=== PATIENT | male | born 1995 | race Caucasian/White ===

== ENCOUNTER 2017-11-29 18:00 | Emergency (ER) | payer MEDICAID, OTHER ==
[2017-11-29 18:12] VITALS: BP 130/87
--- NOTE | 2017-11-29 18:39 | UC ---
Back Pain HPI - HPI Summary HPI Summary: 22 y/o male presents to the urgent care c/o acute mid back pain for the past week. Pt reports he had similar symptoms a month ago and he got a massage and symptoms resolved. This time he did the massage, but back pain still present. Pt also states his left lower leg was amputated on 04/10/2017 s/p injury at work. Pt now w/ BKA prosthesis. 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 Pain today is 9/10 sharp w/ movement on both side of mid back and radiating to his Rt lower leg. [facility] [place] Pt denies trauma to his back, saddle anesthesia, fecal or urinary incontinence, numbness or tingling over his lower extremities, urinary symptoms, fever, flank pain, abdominal pain, SOB, chest pain, N/V/D. - History of Current Complaint Chief Complaint: UCBackPain Stated Complaint: BACK PAIN Time Seen by Provider: 11/29/17 18:31 Hx Obtained From: Patient Onset/Duration: Gradual Onset, Lasting Weeks - 1 week Timing: Constant Severity Initially: Moderate Severity Currently: Severe Pain Intensity: 9 Pain Scale Used: 0-10 Numeric Back Pain: Is Discrete @ - B/L mid back pain, Radiates To - RT lower leg Character: Sharp, Spasmodic Aggravating Factor(s): Movement, Lifting, Bending Alleviating Factor(s): Rest, OTC Meds Associated Signs And Symptoms: Positive: Negative. Negative: Swelling, Redness , Bruising, Fever, Weakness, Numbness, Tingling, Abdominal Pain, Flank Pain, Bladder Incontinence, Bowel Incontinence, Weight Loss, Pain with Weight Bearing - Risk Factors AAA Risk Factors: Negative TAD Risk Factors: Negative Cauda Equina Risk Factors: Negative Epidural Abscess Risk Factors: Negative - Allergies/Home Medications Allergies/Adverse Reactions: Allergies Allergy/AdvReac Type Severity Reaction Status Date / Time No Known Allergies Allergy Verified 11/29/17 18:12 Home Medications: Home Medications Gabapentin CAP(*) [Neurontin 300 CAP(*)] 600 mg PO DAILY 11/29/17 [History Confirmed 11/29/17] PMH/Surg Hx/FS Hx/Imm Hx Previously Healthy: Yes - Pt denies PMHX Other History Of: Negative For: HIV, Hepatitis B, Hepatitis C, Anticoagulant Therapy - Surgical History Surgical History: Yes Surgery Procedure, Year, and Place: jaw "wired shut" 8th grade, tendon repair in hand.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 - Family History Known Family History: Positive: None - Pt denies FMHX Negative: Cardiac Disease, Hypertension, Diabetes, Renal Disease - Social History Occupation: Disabled Lives: With Family Alcohol Use: Weekly Alcohol Amount: 6 PACK DAILY Substance Use Type: None Substance Use Comment - Amount & Last Used: cocaine 01/28/16 Smoking Status (MU): Former Smoker Review of Systems Constitutional: Negative Skin: Negative Eyes: Negative ENT: Negative Respiratory: Negative Cardiovascular: Negative Gastrointestinal: Negative Genitourinary: Negative Motor: Negative Neurovascular: Negative Musculoskeletal: Decreased ROM - mid back, Other: - B/L mid back pain Neurological: Negative Psychological: Negative Is Patient Immunocompromised?: No All Other Systems Reviewed And Are Negative: Yes Physical Exam - Summary Physical Exam Summary: Vital Signs Reviewed: Yes Appearance: Well-Appearing, Well-Nourished, malew/ BKA sitting in a wheelchair w/ mild pain distress distress. Eyes: Positive: Conjunctiva Clear - PERRLA, EOMI. ENT: Positive: Normal ENT inspection, Hearing grossly normal, Pharynx normal, TMs normal, Uvula midline Neck: Positive: Supple, Nontender, No Lymphadenopathy Respiratory: Positive: Chest non-tender, Lungs clear, Normal breath sounds, No respiratory distress Cardiovascular: Positive: RRR, No Murmur, Pulses Normal, Brisk Capillary Refill Abdomen Description: Positive: Nontender, No Organomegaly, Soft. Negative: CVA Tenderness (R), CVA Tenderness (L) Bowel Sounds: Positive: Present Musculoskeletal: Positive: Strength Intact, BACK: Patient walks w/ BKA prosthesis with symmetric ambulation, No signs of limping, antalgic, able to bear weight. No signs of trauma, No masses palpated. Point tenderness at the level of T-11-12, B/Lparaspinal muscle tenderness at the same level. No B/L CVAT, no flank ecchymosis . No sacroiliac notch tenderness, No saddle anesthesia.ROM: limited due to pain, Straight Leg Raise: negative. Patellar reflexes: brisk, symmetric Muscle strength lower extremities. Dorsiflexion/ plantar flexion of ankles. Heel/ toe walk. Lower extremities: Femoral, popliteal , posterior tibial, and dorsalis pedis pulses WNL. Pt refuse rectal exam Neurological: Positive: Alert, Muscle Tone Normal Psychological Exam: Normal Skin Exam: Normal Triage Information Reviewed: Yes Vital Signs: Initial Vital Signs Temp 97.3 F 11/29/17 18:06 Pulse 85 11/29/17 18:06 Resp 22 11/29/17 18:06 BP 130/87 11/29/17 18:06 Pulse Ox 100 11/29/17 18:06 Back Pain Course/Dx - Course Course Of Treatment: 22 y/o male presents to the urgent care c/o acute mid back pain for the past week. Pt reports he had similar symptoms a month ago and he got a massage and symptoms resolved. This time he did the massage, but back pain still present. Pt also states his left lower leg was amputated on 2016 s/p injury at work. Pt now w/ BKA prosthesis. 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 Pain today is 9/10 sharp w/ movement on both side of mid back and radiating to his Rt lower leg. Pt has been taking Gabapentin PO Rx by his [facility] at [place]. Pt denies trauma to his back, saddle anesthesia, fecal or urinary incontinence, numbness or tingling over his lower extremities, urinary symptoms, fever, flank pain, abdominal pain, SOB, chest pain, N/V/D.Hx obtained. UA ordered: negative.At this point I have no suspicion for Kidney stones since patient has no hematuria and no flank tenderness. Thoracolumbar Spine X-ray ordered: Impression:Mild degree of S-sahpe of lower thoracic and lumbar spine, otherwise no acute abdnormality as per radiologist. Pt most likley w/ a mid back strain. Toradol IM inj given by nurse. Pt tolerated well medication pain decrease. Pt Rx Naproxen PO, flexeril PO and given advised to f/u w/ [facility] referral for further management if not improvement of symptoms. Plan of care was discussed with the patient and patient understands and agrees. All questions were answered at patient satisfaction. Pt left clinic hemodynamically stable. - Differential Dx/Diagnosis Differential Diagnosis/HQI/PQRI: Compressive Cord Syndrome, Fracture, Herniated Disc, Strain, Sprain Provider Diagnoses: 1- Thoracic back strain. 2-Back muscle spasm Discharge - Sign-Out/Discharge Documenting (check all that apply): Discharge/Admit/Transfer - D/C home - Discharge Plan Condition: Stable Disposition: HOME Prescriptions: Cyclobenzaprine TAB* [Flexeril 10 MG TAB*] 10 mg PO TID PRN #21 tab PRN Reason: Spasms - Back Naproxen TAB* [Naprosyn 250 mg TAB*] 250 mg PO Q8H PRN #30 tab PRN Reason: Pain Patient Education Materials: Muscle Spasm (ED), Thoracic Back Strain (ED) Referrals: [facility] [Provider Group] - 1 Week [facility]] - 1 Week Additional Instructions: 1- Please take Naproxen PO as directed after meals for pain. 2- Take Flexeril PO as directed for muscle spasm. Please do not drive while taking the medication. 3- Wear a back support. Avoid strenuous exercise of heavy lifting. 4- Please follow up with Sports medicine referral or your PCP in 1 week if not improvement of symptoms, for further management. - Billing Disposition and Condition Condition: STABLE Disposition: Home
[2017-11-29] MEDS ORDERED: Ketorolac INJ* 30 MG/ML 1 ML VIAL IM ONE (18:50)
--- NOTE | 2017-11-29 19:37 | RAD ---
INDICATION: Atraumatic mid-level back pain x1 week COMPARISON: None. TECHNIQUE: 2 views of the thoracic spine were obtained. FINDINGS: On the AP view there is a mild degree of S-shaped curvature of the lower thoracic and lumbar spine. Otherwise the vertebral bodies and facet joints are appropriately aligned. No fracture is seen. Disc spaces appear maintained. IMPRESSION: No radiographically apparent acute abnormality of the thoracic spine.
== END 2017-11-29 19:58 | disposition home or self-care (01) ==
LOC: UCEAST 18:00
DX: S29.012A Strain of muscle and tendon of back wall of thorax, initial encounter (principal); X58.XXXA Exposure to other specified factors, initial encounter; Y93.9 Activity, unspecified; Y92.9 Unspecified place or not applicable; M62.830 Muscle spasm of back; Z89.512 Acquired absence of left leg below knee; Z87.891 Personal history of nicotine dependence
CPT/HCPCS: 72080; 81003; 96372; 99211; G0463; J1885

== ENCOUNTER → 2018-02-17 17:07 | Emergency (ER) | payer SELFPAY ==
[2018-02-17 17:15] VITALS: BP 144/79
== END | disposition left against medical advice (07) ==
LOC: ED 17:07 → SUPCPDRO 17:07
DX: R50.9 Fever, unspecified (principal); Z53.21 Procedure and treatment not carried out due to patient leaving prior to being seen by health care provider

== ENCOUNTER 2018-08-29 23:08 | Emergency (ER) | payer OTHER ==
--- NOTE | 2018-08-29 23:26 | ED ---
Substance Abuse/Use - HPI Summary HPI Summary: Pt is a 23 y/o male brought in by EMS and police who presents to the ED s/p overdose. At 21:30 he took 100 mg Trazodone, and at 22:00 he took another 100 mg for a total of 200 mg. Pt states he has been having sleeping issues lately and is prescribed the Trazodone for insomnia. He is prescribed only 50 mg, however he normally takes 100 mg. As per EMS, his fianc found him unresponsive with a weak pulse, so she started CPR. Patient became responsive to a sternal rub by EMS and is now A&Ox3. He denies any self-harm or SI, and states he took the medication to help him sleep. Pt now c/o fatigue. He denies any alcohol use or other drug use. Vital signs while in room: HR 120 bpm, O2 sat 88% on room air. As per medical records, he is a prior crack cocaine and opioid user. - History Of Current Complaint Stated Complaint: POSSIBLE OVERDOSE PER EMS Time Seen by Provider: 08/29/18 23:10 Hx Obtained From: Patient, EMS Ingestion History: Type/Name Of Drug - Trazodone, Amount Ingested - 200 mg, Approximate Time Of Ingestion - 21:30 and 22:00 Overdose Characteristics: Oral Character: Other - Fatigued Aggravating Factor(s): Other - insomnia Alleviating Factor(s): Nothing Associated Signs And Symptoms: Intentional Ingestion - Allergies/Home Medications Allergies/Adverse Reactions: Allergies Allergy/AdvReac Type Severity Reaction Status Date / Time No Known Allergies Allergy Verified 02/17/18 17:10 PMH/Surg Hx/FS Hx/Imm Hx Endocrine/Hematology History: Denies: Hx Anticoagulant Therapy, Hx Diabetes, Hx Thyroid Disease, Hx Unexplained Bleeding Cardiovascular History: Reports: Hx Syncope Denies: Hx Congestive Heart Failure, Hx Deep Vein Thrombosis, Hx Hypertension , Hx Myocardial Infarction, Hx Pacemaker/ICD Respiratory History: Denies: Hx Asthma, Hx Chronic Obstructive Pulmonary Disease (COPD), Hx Lung Cancer, Hx Pneumonia, Hx Pulmonary Embolism GI History: Denies: Hx Gall Bladder Disease, Hx Gastrointestinal Bleed, Hx Ulcer, Hx Urosepsis History: Denies: Hx Kidney Stones, Hx Renal Disease Musculoskeletal History: Reports: Other Musculoskeletal History - L BKA Sensory History: Denies: Hx Contacts or Glasses, Hx Hearing Aid Opthamlomology History: Denies: Hx Contacts or Glasses Neurological History: Reports: Hx Headaches - past 30 says Denies: Hx Dementia, Hx Migraine, Hx Seizures, Hx Transient Ischemic Attacks (TIA) Psychiatric History: Reports: Hx Substance Abuse Denies: Hx Anxiety, Hx Depression, Hx Schizophrenia, Hx Bipolar Disorder - Surgical History Surgery Procedure, Year, and Place: jaw "wired shut" 8th grade, tendon repair in hand.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 Hx Anesthesia Reactions: No Infectious Disease History: No Infectious Disease History: Denies: Traveled Outside the [place] in Last 30 Days - Family History Known Family History: Negative: Cardiac Disease, Hypertension, Diabetes, Renal Disease - Social History Alcohol Use: Weekly Alcohol Amount: 6 PACK DAILY Hx Substance Use: Yes Substance Use Type: Reports: None Substance Use Comment - Amount & Last Used: cocaine 01/28/16 Hx Tobacco Use: Yes Smoking Status (MU): Current Every Day Smoker Type: Cigarettes Review of Systems Positive: Fatigue Negative: Other - SI, self-harm All Other Systems Reviewed And Are Negative: Yes Physical Exam - Summary Physical Exam Summary: VITAL SIGNS: Reviewed. GENERAL: Patient is a well-developed and nourished MALE who is lying comfortable in the stretcher. Patient is not in any acute respiratory distress. HEAD AND FACE: No signs of trauma. No ecchymosis, hematomas or skull depressions. No sinus tenderness. EYES: PERRLA, EOMI x 2, No injected conjunctiva, no nystagmus. EARS: Hearing grossly intact. Ear canals and tympanic membranes are within normal limits. MOUTH: Oropharynx within normal limits. NECK: Supple, trachea is midline, no adenopathy, no JVD, no carotid bruit, no c- spine tenderness, neck with full ROM. CHEST: Symmetric, no tenderness at palpation LUNGS: Clear to auscultation bilaterally. No wheezing or crackles. CVS: Tachycardic rate but regular rhythm, S1 and S2 present, no murmurs or gallops appreciated. ABDOMEN: Soft, non-tender. No signs of distention. No rebound no guarding, and no masses palpated. Bowel sounds are normal. EXTREMITIES: FROM in all major joints, no edema, no cyanosis or clubbing. Left BKA. NEURO: Alert and oriented x 3. No acute neurological deficits. Speech is normal and follows commands. SKIN: Dry and warm Triage Information Reviewed: Yes Vital Signs On Initial Exam: Initial Vitals Temp Pulse Resp BP Pulse Ox 97.4 F 119 18 127/91 91 08/29/18 23:14 08/29/18 23:14 08/29/18 23:14 08/29/18 23:14 08/29/18 23:14 Vital Signs Reviewed: Yes Diagnostics - Vital Signs Vital Signs Temp Pulse Resp BP Pulse Ox 08/29/18 23:14 97.4 F 119 18 127/91 91 - Laboratory Result Diagrams: 08/29/18 23:36 08/29/18 23:36 Lab Statement: Any lab studies that have been ordered have been reviewed, and results considered in the medical decision making process. - EKG 23:52 Cardiac Rate: Tachycardia - 108 bpm EKG Rhythm: Sinus Tachycardia Summary of EKG Findings: Normal axis. Normal interval. No ischemic changes. Course/Dx - Course Course Of Treatment: Nurses notes reviewed. Pt is a 23 y/o male brought in by EMS and police who presents to the ED s/p overdose of 200 mg Trazodone at 21: 30. He c/o fatigue but denies any SI or self-harm. A physical exam revealed tachycardia and left BKA. An EKG revealed tachycardia at a rate of 108 bpm but was otherwise normal. He will be discharged with a final dx of accidental overdose. Pt is agreeable with this plan. - Diagnoses Provider Diagnoses: Accidental overdose Discharge - Sign-Out/Discharge Documenting (check all that apply): Patient Departure - Discharge Patient Received Moderate/Deep Sedation with Procedure: No - Discharge Plan Condition: Stable Disposition: HOME Patient Education Materials: Adult Overdose (ED) Referrals: Maksim Turpin MENT[facility] HEALTH THERAPIST [Primary Care Provider] - (2-3 days) Additional Instructions: PLEASE RETURN TO THE ED IMMEDIATELY FOR WORSENING OR CONCERNING SYMPTOMS. - Attestation Statements Document Initiated by Scribe: Yes Documenting Scribe: Stella Hare Provider For Whom Scribe is Documenting (Include Credential): Michael Saxena MD Scribe Attestation: Stella Wilson, scribed for Michael Saxena MD on 08/30/18 at 0029. Status of Scribe Document: Ready
--- OUTSIDE RECORDS SUMMARY | 2018-08-29 23:38 | XMS REPORT | Continuity of Care Document ---
:1995 External Reference #:[id number] Author Name Karan Kayla Care Team Providers Name Role Phone Alana Gramajo MD Primary Care Physician Unavailable Payers Date Identification Numbers Payment Provider Subscriber Policy Number: [id number] [place] Gavin Smith Group Number: [id number] [address] PayID: [id number] [place] [address] Expires: 2018 Policy Number: [id number] [facility] Shreyas Fredricknegro Group Number: [id number] [address] PayID: [id number] [place] [address] Expires: 2015 PayID: [id number] [employer] Employee [address] [place] [address] Effective: 2015 Policy Number: Cont: [employer] Employee [id number] Employees PayID: [id number] [place] [address] Advance Directives Type Date Description Status Comment Other Directive 04/11/2018 Health Care Proxy Current and Verified Problems Date Description Provider Status Onset: 07/11/2018 History of intravenous drug abuse Maksim Turpin NP Active Family History Date Family Member(s) Observation Comments General No Current Problems Social History Type Date Description Comments Sex Unknown Lives With Girlfriend Occupation Disabled ETOH Use Occasionally consumes alcohol Tobacco Use Start: Unknown Light tobacco smoker 5 cigarettes daily (10 or fewer since age 19. cigarettes/day) Recreational Drug Use Former Drug User Smoking Status Reviewed: 07/31/18 Light tobacco smoker 5 cigarettes daily (10 or fewer since age 19. cigarettes/day) Exercise Type/Frequency Does not exercise Allergies, Adverse Reactions, Alerts Description No Known Drug Allergies Medications Medication Date Status Form Strength Qnty SIG Indications Ordering Provider Trazodone HCL 07/03/ Active Tablets 50mg 60tabs 1-2 G47.00 Randolph Dyana2018 tablets at SAFETY AND OCCUPATIONAL HEALTH MANAGER bedtime as needed. Nicotine 07/03/ Active Patches 21mg/24HR 28unit one patch F17.210 Maksimsumit Turpin2018 24HR s daily x 6 [employer]Y AND OCCUPATIONAL HEALTH MANAGER weeks Baclofen 07/03/ Active Tablets 10mg 60tabs take 1/2-1 Maksimsumit Turpin2018 tab every S[employer]ETY AND OCCUPATIONAL HEALTH MANAGER 8 hours as needed Omeprazole 04/11/ Active Capsules 20mg 30caps 1 by mouth K21.[address] once daily S[employer]ETY AND OCCUPATIONAL HEALTH MANAGER Gabapentin 00/ Active Tablets 600mg 60tabs take one Maksimsumit Turpin, tablet by SAFETY AND OCCUPATIONAL HEALTH MANAGER mouth twice times a day Vistaril 04/11/ Hx Capsules 25mg 60caps take 1 to G47.00 Maksimsumit Turpin2017 - 2 capsules SAFETY AND OCCUPATIONAL HEALTH MANAGER 07/03/ before bed 2018 as needed No Active 07/28/ Hx Yudy Medications Tisha - Elena Koch 2017 Immunizations Description No Information Available Vital Signs Date Vital Result Comment 07/11/2018 10:56am Height 66 inches 5'6" Weight 201.25 lb Heart Rate 92 /min BP Systolic 130 mmHg BP Diastolic 81 mmHg Body Temperature 97.8 F O2 % BldC Oximetry 96 % BMI (Body Mass Index) 32.5 kg/m2 07/03/2018 3:02pm Height 66 inches 5'6" Weight 196.50 lb Heart Rate 110 /min BP Systolic 124 mmHg BP Diastolic 83 mmHg Body Temperature 98.2 F O2 % BldC Oximetry 97 % BMI (Body Mass Index) 31.7 kg/m2 04/11/2018 9:02am Height 66 inches 5'6" Weight 204.00 lb Heart Rate 82 /min BP Systolic 134 mmHg BP Diastolic 85 mmHg Body Temperature 97.7 F O2 % BldC Oximetry 96 % BMI (Body Mass Index) 32.9 kg/m2 08/12/2015 1:46pm Height 68 inches 5'8" Weight 170.00 lb Pain Level 0 BMI (Body Mass Index) 25.8 kg/m2 07/29/2015 2:12pm Height 68 inches 5'8" Weight 170.00 lb Heart Rate 76 /min BP Systolic 131 mmHg BP Diastolic 85 mmHg BMI (Body Mass Index) 25.8 kg/m2 Results Test Date Facility Test Result H/L Range Note Order 07/31/2018 [employer] In-House Holter <pending> Monitor Inr/Protime 07/18/2018 [facility] Inr 1.03 High 0.77-1.[address] [place] [address] [phone] Laboratory test 07/18/2018 [facility] Partial 25.0 seconds Low 26.0-36.[address] [place] [address] PTT [phone] CBC Auto Diff 07/18/2018 [facility] White Blood 12.4 10^3/uL High 3.5-10.[address] [place] [address] [phone] Red Blood Count 4.98 10^6/uL N 4.00-5.40 Hemoglobin 13.7 g/dL Low 14.0-18.0 Hematocrit 42 % N 42-52 Mean Corpuscular Volume 85 fL N 80-94 Mean Corpuscular Hemoglobin 28 pg N 27-31 Mean Corpuscular HGB Conc 32 g/dL N 31-36 Red Cell Distribution Width 14 % N 10.5-15 Platelet Count 434 10^3/uL N 150-450 Mean Platelet Volume 7.8 fL N 7.4-10.4 Abs Neutrophils 8.5 10^3/uL High 1.5-7.7 Abs Lymphocytes 2.5 10^3/uL N 1.0-4.8 Abs Monocytes 1.3 10^3/uL High 0-0.8 Abs Eosinophils 0 10^3/uL N 0-0.6 Abs Basophils 0.1 10^3/uL N 0-0.2 Abs Nucleated RBC 0 10^3/uL Granulocyte % 68.4 % Lymphocyte % 20.3 % Monocyte % 10.2 % Eosinophil % 0.2 % Basophil % 0.9 % Nucleated Red Blood Cells % 0.1 Type & Screen 07/18/2018 [facility] Patient [place] [address] [phone] Antibody Screen NEGATIVE Basic Metabolic Panel 07/18/2018 [facility] Sodium 137 mmol/L N 135-145 [place] [address] [phone] Chloride 105 mmol/L N 101-111 Glucose 221 mg/dL High 70-100 Blood Urea Nitrogen 13 mg/dL N 6-24 Creatinine 0.97 mg/dL N 0.67-1.17 BUN/Creatinine Ratio 13.4 N 8-20 Calcium 9.1 mg/dL N 8.6-10.3 Egfr Non- 95.1 >60 Egfr 115.1 >60 1 Co2 Carbon Dioxide 11 mmol/L Low 22-32 2 Potassium 3.8 mmol/L N 3.5-5.0 Anion Gap 22 mmol/L High 2-11 Laboratory test 07/18/2018 [facility] Phosphorus 4.0 mg/dL N 2.5-5.0 [place] [address] [phone] Troponin-I (TnI) 0.01 ng/mL <0.04 3 Lactic Acid 0.8 mmol/L N 0.5-2.0 4 GC/Chlamydia 04/11/2018 [facility] Chlamydia Negative Negative Amplified Rna [facility] [place] [place] [address] [phone] Neisseria gonorrhoeae (GC) Rna Negative Negative Laboratory test 04/11/2018 [facility] TSH (Thyroid 1.45 mcIU/mL N 0.34-5.60 finding [facility] [place]) [place] [address] [phone] Cortisol 1.51 g/dL 5 Comp Metabolic Panel 04/11/2018 [facility] Sodium 139 mmol/L N 135-145 [place] [address] [phone] Potassium 4.6 mmol/L N 3.5-5.0 Chloride 107 mmol/L N 101-111 Co2 Carbon Dioxide 26 mmol/L N 22-32 Anion Gap 6 mmol/L N 2-11 Glucose 86 mg/dL N 70-100 Blood Urea Nitrogen 15 mg/dL N 6-24 Creatinine 0.87 mg/dL N 0.67-1.17 BUN/Creatinine Ratio 17.2 N 8-20 Calcium 9.6 mg/dL N 8.6-10.3 Total Protein 6.4 g/dL N 6.4-8.9 Albumin 4.1 g/dL N 3.2-5.2 Globulin 2.3 g/dL N 2-4 Albumin/Globulin Ratio 1.8 N 1-3 Total Bilirubin 0.30 mg/dL N 0.2-1.0 Alkaline Phosphatase 70 U/L N 34-104 Alt 28 U/L N 7-52 Ast 21 U/L N 13-39 Egfr Non- 108.7 >60 Egfr 131.6 >60 6 CBC Auto Diff 04/11/2018 [facility] White Blood 6.6 10^3/uL N 3.5-10.[address] [place] [address] [phone] Red Blood Count 4.78 10^6/uL N 4.00-5.40 Hemoglobin 13.9 g/dL Low 14.0-18.0 Hematocrit 42 % N 42-52 Mean Corpuscular Volume 87 fL N 80-94 Mean Corpuscular Hemoglobin 29 pg N 27-31 Mean Corpuscular HGB Conc 33 g/dL N 31-36 Red Cell Distribution Width 13 % N 10.5-15 Platelet Count 305 10^3/uL N 150-450 Mean Platelet Volume 8.5 fL N 7.4-10.4 Abs Neutrophils 3.4 10^3/uL N 1.5-7.7 Abs Lymphocytes 2.2 10^3/uL N 1.0-4.8 Abs Monocytes 0.8 10^3/uL N 0-0.8 Abs Eosinophils 0.2 10^3/uL N 0-0.6 Abs Basophils 0.1 10^3/uL N 0-0.2 Abs Nucleated RBC 0 10^3/uL Granulocyte % 51.1 % N 38-83 Lymphocyte % 32.7 % N 25-47 Monocyte % 12.7 % High 0-7 Eosinophil % 2.7 % N 0-6 Basophil % 0.8 % N 0-2 Nucleated Red Blood Cells % 0 Laboratory test 04/11/2018 [facility] PSA Screening 0.699 ng/mL N 0-4.[address] [place] [address] [phone] Urine Culture And 04/11/2018 [facility] Urine Culture SEE RESULT [address] [place] [address] [phone] Laboratory test 07/30/2015 [facility] Surgical SEE RESULT [address] [place] [address] [phone] 1 Because ethnic data is not always readily available, this report includes an eGFR for both -Americans and non- Americans. The National Kidney Disease Education Program (NKDEP) does not endorse the use of the MDRD equation for patients that are not between the ages of 18 and 70, are , have extremes of body size, muscle mass, or nutritional status, or are non- or non-. According to the National Kidney Foundation, irrespective of diagnosis, the stage of the disease is based on the level of kidney function: Stage Description GFR(mL/min/1.73 m(2)) 1 Kidney damage with normal or decreased GFR 90 2 Kidney damage with mild decrease in GFR 60-89 3 Moderate decrease in GFR 30-59 4 Severe decrease in GFR 15-29 5 Kidney failure <15 (or dialysis) 2 Critical Result CO2:11 Called to SANTINO at: 13:54:26 by:[id number] Read back by:SANTINO 3 Troponin-I testing on Plasma Separator Tubes (PST) has a known false positive rate of 0.20-0.40%. All positive troponins reflex immediate secondary confirmatory testing. 4 [facility] Severe Sepsis and Septic Shock Management Bundle Measure requires all lactic acids initially measuring >2.0 mmol/L be repeated. 5 AM 8.7-22.4 PM <10 6 Because ethnic data is not always readily available, this report includes an eGFR for both -Americans and non- Americans. The National Kidney Disease Education Program (NKDEP) does not endorse the use of the MDRD equation for patients that are not between the ages of 18 and 70, are , have extremes of body size, muscle mass, or nutritional status, or are non- or non-. According to the National Kidney Foundation, irrespective of diagnosis, the stage of the disease is based on the level of kidney function: Stage Description GFR(mL/min/1.73 m(2)) 1 Kidney damage with normal or decreased GFR 90 2 Kidney damage with mild decrease in GFR 60-89 3 Moderate decrease in GFR 30-59 4 Severe decrease in GFR 15-29 5 Kidney failure <15 (or dialysis) 7 SEE RESULT BELOW Name: GAVIN SMITH : [address]: Maksim Turpin NP Acct: [id number] Unit: [id number] AGE: 22 Location: [facility] Re04/11/18 SEX: M Status: REG REF SPEC: [id number] EZIO: 04/11/180959 [facility] DR: Maksim Turpin NP REQ: [id number] RECD: 04/11/18 STATUS: COMP _ SOURCE: URINE SPDESC: ORDERED: Urine Culture Procedure Result Reported Site Urine Culture Final 04/12/18- 1423 ML No Growth (<1,000 CFU/mL) * ML - Main Lab . END OF REPORT DEPARTMENT OF PATHOLOGY, [address] [place] [address] Rubin Pedersen M.D. Director [facility] # [id number] 8 SEE RESULT BELOW Name: GAVIN SMITH : [address]: Yudy Koch MD Acct: [id number] Unit: [id number] AGE: 20 Location: [facility] Re07/30/15 SEX: M Status: REG SDC SPEC: [id number] EZIO: 07/30/15 [facility] DR: Yudy Koch MD REQ: [id number] RECD: 07/30/15 STATUS: SOUT _ ORDERED: LEVEL I FINAL DIAGNOSIS Right index finger, excision: Foreign body as described above (Gross diagnosis). PRE-OPERATIVE DIAGNOSIS Right index finger wound/nerve laceration, questionable foreign body and damage to tendon. GROSS DESCRIPTION The specimen is received in formalin labeled, Foreign Body Carbon Fibers Right Index Finger, and consists of three marin-black irregular fragments of synthetic material ranging from 0.3 cm by less than 0.1 x 0.1 cm to 0.5 x 0.3 cm by less than 0.1 cm. Per established hospital medical staff protocol, no tissue is submitted. Gross only. Signed (signature on file) Rubin Pedersen MD 1616 END OF REPORT * ML=Testing performed at Main Lab DEPARTMENT OF PATHOLOGY, [address] [place] [address] Rubin Pedersen M.D. Director [facility] # [id number] Procedures Date Code Description Status 07/31/2018 11803 ECG Monitor/Recording W/Visual Superimposition Scanning Completed 07/11/2018 86049 EKG Tracing & Interpretation Completed 07/30/2015 62464 Suture Nerve, Digital Hand Or Foot Completed 07/30/2015 67487 Suture Nerve, Digital Hand Or Foot Completed 07/30/2015 17447 Inc & Removal Foreign Body Subcutaneous Tissues Completed 04/13/2011 91687 repair or advancement,flexor tendon,zone 2 digital flexor Completed tendon 04/13/2011 34011 repair or advancement,flexor tendon,zone 2 digital flexor Completed tendon Encounters Type Date Location Provider Dx Diagnosis Office Visit 07/11/2018 [facility] Internal Maksim Turpin S[employer]ETY AND OCCUPATIONAL HEALTH MANAGER R55 Syncope and 10:40a Medicine - collapse [place] G43.009 Migraine w/o aura, not intractable, w/o status migrainosus R07.89 Other chest pain R06.83 Snoring Office Visit 07/03/2018 2:40p [facility] Internal Maksimsumit Turpin, G47.00 Insomnia, Medicine - SAFETY AND OCCUPATIONAL HEALTH MANAGER unspecified [place] F17.210 Nicotine dependence, cigarettes, uncomplicated 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 RPA-C damage to nail, init Office Visit 01/21/2013 [facility] Nursing Emily V70.3 Examination Other 8:30a [facility] Administrative Purpose Office Visit 11/17/2011 [facility] V70.3 Examination Other 10:00a [facility] Administrative Purpose Office Visit 04/10/2011 [facility] 883.2 Open Wound 9:15a [facility] Finger(S) W/ Tendon C.M.ALibia MAntonio Involvement Plan of Treatment 07/31/2018 - Maksim Turpin NPT40.604S Poisoning by unspecified narcotics, undetermined, sequelaComments:At the hospital you were diagnosed with serotonin syndrome or drug overdose. It is important to continue to refrain from any use of illegal substances.G43.009 Migraine without aura, not intractable, without status migraReferral:Luis Daniel Tran M.D., [id number] Syncope and collapseComments:Have the holter monitor placed.I still would like you to have the echocardiogram.
[2018-08-29 23:58] LABS: Hematocrit 40 % (36-46); Hemoglobin 13.5 g/dL (14.0-18.0); Mean Corpuscular HGB Conc 34 g/dL (31-36); Mean Corpuscular Hemoglobin 28 pg (27-31); Mean Corpuscular Volume 84 fL (80-94); Mean Platelet Volume 7.9 fL (7.4-10.4); Platelet Count 359 10^3/uL (150-450); Red Blood Count 4.78 10^6 /uL (4.18-5.48); Red Cell Distribution Width 15 % (10.5-15); White Blood Count 19.4 10^3/uL (3.5-10.8)
[2018-08-30 00:06] LABS: Acetaminophen < 15 mcg/mL; Alcohol < 10 mg/dL (<10); Salicylate < 2.50 mg/dL (<30)
[2018-08-30 00:07] LABS: ALT 22 U/L (7-52); AST 18 U/L (13-39); Albumin 4.4 g/dL (3.2-5.2); Albumin/Globulin Ratio 1.6 (1-3); Alkaline Phosphatase 84 U/L (34-104); Anion Gap 8 mmol/L (2-11); BUN/Creatinine Ratio 18.8 (8-20); Blood Urea Nitrogen 18 mg/dL (6-24); CO2 Carbon Dioxide 28 mmol/L (22-32); Calcium 9.5 mg/dL (8.6-10.3); Chloride 99 mmol/L (101-111); EGFR African American 116.4 (>60); EGFR Non-African American 96.2 (>60); Globulin 2.8 g/dL (2-4); Glucose 134 mg/dL (70-100); Potassium 3.4 mmol/L (3.5-5.0); Sodium 135 mmol/L (135-145); Total Protein 7.2 g/dL (6.4-8.9)
[2018-08-30 00:40] LABS: ABS Basophils 0.1 10^3/ul (0-0.2); ABS Eosinophils 0.1 10^3/ul (0-0.6); ABS Lymphocytes 1.7 10^3/ul (1.0-4.8); ABS Monocytes 1.6 10^3/ul (0-0.8); ABS Neutrophils 15.9 10^3/ul (1.5-7.7); ABS Nucleated RBC 0 10^3/ul; Eosinophil % 0.3 %; Lymphocyte % 8.8 %; Nucleated Red Blood Cells % 0
[2018-08-30 00:46] VITALS: BP 118/80
== END 2018-08-30 00:45 | disposition home or self-care (01) ==
LOC: ED 23:08
DX: T43.211A Poisoning by selective serotonin and norepinephrine reuptake inhibitors, accidental (unintentional), initial encounter (principal); R53.83 Other fatigue; R00.0 Tachycardia, unspecified; Y92.9 Unspecified place or not applicable; Z89.512 Acquired absence of left leg below knee; F17.210 Nicotine dependence, cigarettes, uncomplicated
CPT/HCPCS: 36415; 80053; 80320; 80329; 85025; 93005; 99282; G0480

== ENCOUNTER 2018-09-14 01:15 | Emergency (ER) | payer OTHER ==
--- NOTE | 2018-09-14 03:55 | ED ---
Neurological HPI - HPI Summary HPI Summary: The patient is a 23 y/o M presenting to [facility] with a chief complaint of paresthesia in the left arm extending from the elbow to the wrist starting at 0030 when he woke up after a syncopal episode. He woke up from sleeping when he had to go to the bathroom, so he sat on the toilet for about 20 minutes before getting up. He then thinks he became lightheaded and fainted for 30 minutes. When he woke up, he noticed loss sensation in the left arm that has somewhat resolved. The numbness limits ROM at the elbow but not at the shoulder. He additionally c/o mild neck pain without any changes in head ROM. No previous experience similar to this. - History of Current Complaint Chief Complaint: EDSyncope Stated Complaint: "CHEST PAIN/LEFT ARM PAIN" PER PT Time Seen by Provider: 09/14/18 03:40 Hx Obtained From: Patient Onset/Duration: Sudden Onset, Started hours ago, Still Present Timing: Sudden Onset Onset Severity: Severe Current Severity: Severe Neurological Deficit Location: LUE Pain Intensity: 0 Pain Scale Used: 0-10 Numeric Character: Lightheaded Aggravating: Nothing Alleviating: Nothing Associated Signs and Symptoms: Positive: Numbness - in LUE - Additional Pertinent History Primary Care Physician: CATE - Allergy/Home Medications Allergies/Adverse Reactions: Allergies Allergy/AdvReac Type Severity Reaction Status Date / Time No Known Allergies Allergy Verified 02/17/18 17:10 PMH/Surg Hx/FS Hx/Imm Hx Endocrine/Hematology History: Denies: Hx Anticoagulant Therapy, Hx Diabetes, Hx Thyroid Disease, Hx Unexplained Bleeding Cardiovascular History: Reports: Hx Syncope Denies: Hx Congestive Heart Failure, Hx Deep Vein Thrombosis, Hx Hypertension , Hx Myocardial Infarction, Hx Pacemaker/ICD Respiratory History: Denies: Hx Asthma, Hx Chronic Obstructive Pulmonary Disease (COPD), Hx Lung Cancer, Hx Pneumonia, Hx Pulmonary Embolism GI History: Denies: Hx Gall Bladder Disease, Hx Gastrointestinal Bleed, Hx Ulcer, Hx Urosepsis History: Denies: Hx Kidney Stones, Hx Renal Disease Musculoskeletal History: Reports: Other Musculoskeletal History - L BKA Sensory History: Denies: Hx Contacts or Glasses, Hx Hearing Aid Opthamlomology History: Denies: Hx Contacts or Glasses Neurological History: Reports: Hx Headaches - past 30 says Denies: Hx Dementia, Hx Migraine, Hx Seizures, Hx Transient Ischemic Attacks (TIA) Psychiatric History: Reports: Hx Substance Abuse Denies: Hx Anxiety, Hx Depression, Hx Schizophrenia, Hx Bipolar Disorder - Surgical History Surgery Procedure, Year, and Place: jaw "wired shut" 8th grade, tendon repair in hand.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 Hx Anesthesia Reactions: No Infectious Disease History: No Infectious Disease History: Denies: Traveled Outside the [place] in Last 30 Days - Family History Known Family History: Negative: Cardiac Disease, Hypertension, Diabetes, Renal Disease - Social History Alcohol Use: Occasionally Alcohol Amount: 6 PACK DAILY Hx Substance Use: Yes Substance Use Type: Reports: None Substance Use Comment - Amount & Last Used: cocaine 01/28/16 Hx Tobacco Use: Yes Smoking Status (MU): Current Every Day Smoker Type: Cigarettes Review of Systems Positive: Other - lightheaded Positive: Other - mild neck pain does not limit ROM Positive: Paresthesia - in left arm from elbow to wrist causing decreased ROM at elbow but ROM in shoulder is not limited All Other Systems Reviewed And Are Negative: Yes Physical Exam - Summary Physical Exam Summary: Appearance: Well-appearing, Well-nourished, lying in bed comfortably Skin: Warm, dry, no obvious rash Eyes: sclera anicteric, no conjunctival pallor ENT: mucous membranes moist, pharynx appears normal Neck: Supple, nontender Respiratory: Clear to auscultation, no signs of respiratory distress Cardiovascular: Normal S1, S2. No murmurs. Normal distal pulses in tibial and radial bilaterally. Abdomen: Soft, nontender, normal active bowel sounds present Musculoskeletal: Strength/ROM Intact, weakness in the LUE in the shoulder and elbow Neurological: A&Ox3, awake and alert, mentation is normal, speech is fluent and appropriate, GCS: 15 Psychiatric: affect is normal, does not appear anxious or depressed Triage Information Reviewed: Yes Vital Signs On Initial Exam: Initial Vitals Temp Pulse Resp BP Pulse Ox 97.2 F 124 16 101/80 95 09/14/18 01:17 09/14/18 01:17 09/14/18 01:17 09/14/18 01:17 09/14/18 01:17 Vital Signs Reviewed: Yes - [place] Coma Scale Best Eye Response: 4 - Spontaneous Best Motor Response: 6 - Obeys Commands Best Verbal Response: 5 - Oriented Coma Scale Total: 15 Diagnostics - Vital Signs Vital Signs Temp Pulse Resp BP Pulse Ox 09/14/18 01:17 97.2 F 124 16 101/80 95 - Laboratory Lab Statement: Any lab studies that have been ordered have been reviewed, and results considered in the medical decision making process. - Radiology L Shoulder XR Radiology Interpretation Completed By: Radiologist Summary of Radiographic Findings: No acute findings. ED physician has reviewed this report. - CT Brain CT CT Interpretation Completed By: Radiologist Summary of CT Findings: 1. No acute intracranial findings. 2. Partial opacification of left mastoid air cells, new since prior. ED physician has reviewed this report. Cervical Spine CT CT Interpretation Completed By: Radiologist Summary of CT Findings: No acute findings. There is straightening of the normal cervical lordosis which may be positional or secondary to muscle spasm. ED physician has reviewed this report. - EKG 0129 Cardiac Rate: Tachycardia - 112 BPM EKG Rhythm: Sinus Tachycardia Summary of EKG Findings: Sinus tachycardia at 112 BPM. Course/Dx - Course Course Of Treatment: The patient is a 23 y/o M with a chief complaint of paresthesia in the left arm extending from the elbow to the wrist starting at 0030 when he woke up after a syncopal episode. When he woke up, he noticed loss sensation in the left arm that has somewhat resolved. The numbness limits ROM at the elbow but not as much at the shoulder. He additionally c/o mild neck pain without any changes in head ROM. Upon physical exam, the patient exhibits weakness in the LUE in the shoulder and elbow. In the ED course, EKG reveals sinus tachycardia at 112 BPM. EKG reveals sinus tachycardia. Shoulder XR reveals no acute findings. Brain CT shows new partial opacification of left mastoid air cells. Cervical Spine CT is negative. Symptoms have been improving since hes been waiting in the ED. He is diagnosed with peripheral neuropathy. He will follow up with Dr. Beck. He agrees with this plan and understands need for return to the ED for any new or worsening symptoms. - Diagnoses Provider Diagnoses: Peripheral neuropathy Discharge - Sign-Out/Discharge Documenting (check all that apply): Patient Departure - Patient will be discharged home. Patient Received Moderate/Deep Sedation with Procedure: No - Discharge Plan Condition: Good Disposition: HOME Patient Education Materials: Peripheral Neuropathy (ED) Referrals: Travon Beck MD [Medical Doctor] - Additional Instructions: I am not sure why your symptoms are so pronounced tonight. The CT of your brain and cervical spine are normal, so there is not spinal cord injury. I suspect when you went down you stretched some of the nerves that run through your shoulder. For now wear the splint. If your symptoms are not much improved by Sunday, contact the orthopedic surgeon's office for an appt this week. - Billing Disposition and Condition Condition: GOOD Disposition: Home - Attestation Statements Document Initiated by Macho: Yes Documenting Scribe: Dina Vogel Provider For Whom Macho is Documenting (Include Credential): Dr. Luciano Hollins MD Scribe Attestation: I, Dina Vogel scribed for Dr. Luciano Hollins MD on 09/15/18 at 0536. Scribe Documentation Reviewed: Yes Provider Attestation: The documentation as recorded by the Dina celaya accurately reflects the service I personally performed and the decisions made by me, Dr. Luciano Hollins MD Status of Scribe Document: Viewed
[2018-09-14 04:08] VITALS: BP 133/98
== END 2018-09-14 04:07 | disposition home or self-care (01) ==
LOC: ED 01:15
DX: G62.9 Polyneuropathy, unspecified (principal)
CPT/HCPCS: 70450; 72125; 93005; 99282